=== PATIENT | female | born 1940 | race Caucasian/White ===

== ENCOUNTER 2020-09-07 13:32 | Emergency (ER) | payer MEDICARE, MEDICAID, SELFPAY ==
--- NOTE | ~2020-09-07 | XR_ITS ---
EXAMINATION: XR CHEST CLINICAL INFORMATION: Leg swelling COMPARISON: Previous chest x-ray March 2019 TECHNIQUE: 2 views of the chest were obtained. FINDINGS: The cardiac silhouette is enlarged but stable. Hilar and mediastinal contours are unremarkable. The lungs are clear. There is no pleural effusion. There is scoliosis and degenerative changes of the spine. XR/XR chest 2V IMPRESSION: Stable enlargement of the cardiac silhouette. No evidence for acute disease in the chest.
--- NOTE | ~2020-09-07 | US_ITS ---
EXAMINATION: US VENOUS ULTRASOUND WITH DOPPLER LOWER EXTREMITY, BILATERAL CLINICAL INFORMATION: Edema, swelling. COMPARISON: None TECHNIQUE: Ultrasound of the deep veins is performed from the hip to the calf with compression sonography and color and pulse Doppler assessment. Spectral analysis with color-flow imaging is performed. FINDINGS: RIGHT: There is normal venous compression and respiratory variation and augmented flow. The visualized common femoral vein, superficial femoral vein, profunda femoral vein, popliteal vein, and the trifurcation region shows no evidence of deep venous thrombosis. There is no significant popliteal fossa cyst. . LEFT: There is normal venous compression and respiratory variation and augmented flow. The visualized common femoral vein, superficial femoral vein, profunda femoral vein, popliteal vein, and the trifurcation region shows no evidence of deep venous thrombosis. There is no significant popliteal fossa cyst. . US/US venous duplex LE BI IMPRESSION: No DVT demonstrated in the bilateral lower extremity.
[2020-09-07 13:41] VITALS: BP 150/57; PULSE 63; RESP 16; TEMP 35.9; O2SAT 95; BMI 24.8
[2020-09-07 14:00] VITALS: BP 129/61; PULSE 59; RESP 16; TEMP 35.9; O2SAT 95
--- NOTE | 2020-09-07 15:25 | ECG_ITS ---
Test Reason : WEAK Blood Pressure : / mmHG Vent. Rate : 069 BPM Atrial Rate : 069 BPM P-R Int : 174 ms QRS Dur : 108 ms QT Int : 466 ms P-R-T Axes : 039 -12 035 degrees QTc Int : 499 ms Sinus rhythm with Premature atrial complexes Incomplete right bundle branch block Prolonged QT Abnormal ECG When compared with ECG of 19-MAR-2019 10:16, No significant change was found Referred By: Maribel Loco Electronically Signed By:ANY GILBERT MD
[2020-09-07 15:42] LABS: Hematocrit 44.5 % (37-47); Hemoglobin 13.6 g/dl (12.0-16.0); Mean Corpuscular HGB Conc 30.6 g/dl (31.0-35.0); Mean Corpuscular Hemoglobin 27.8 pg (27.0-33.0); Mean Corpuscular Volume 90.8 fL (80-98); Mean Platelet Volume 12.1 fL (9.4-12.3); NRBC Pct Auto 0.1 /100WBC (0.0-0.2); Platelet Count 890 X10*3/uL (160-400); Red Cell Distribution Width 19.9 % (11.0-16.0)
[2020-09-07 15:52] LABS: WBC ABN SCTR FOR CBC 1
[2020-09-07 15:54] LABS: White Blood Count 35.2 X10*3/uL (4.8-10.8)
--- NOTE | 2020-09-07 16:03 | ED.EXTPRO ---
HPI - Extremity Problem General Chief complaint: Extremity Problem <Angelic Guerrero NP - Last Filed: 09/07/20 20:35> Stated complaint: LEGS WARM TOUCH BRUISES ? MEDICATION REACTION <EDUARDO Mckeon Last Filed: 09/07/20 20:35> Time Seen by Provider: 09/07/20 14:47 <EDUARDO Mckeon Last Filed: 09/07/20 20:35> Source: patient and family <EDUARDO Mckeon Last Filed: 09/07/20 20:35> Mode of arrival: ambulatory <EDUARDO Mckeon Last Filed: 09/07/20 20:35> Limitations: no limitations <EDUARDO Mckeon Last Filed: 09/07/20 20:35> History of Present Illness HPI Narrative: 80-year-old female with a past medical history of polycythemia on Hydrea with intermittent phlebotomies, AFib rate controlled on a beta-anup and on Eliquis, asthma, CVA, diabetes, hypertension, hyperlipidemia here with multiple complaints. The patient tells me that for the last 3 days she has noticed an itching rash to her lower extremities as well as some swelling. She also has some discomfort to the lower extremities. No injury or trauma. She denies any fevers, chills, shortness of breath, chest pain. She tells me that she has been outside in the heat this week and not following her low-salt diet. She does tell me she was walking in the grass prior to any symptoms started. She is unclear if she got bitten by something. She tells me she has episodes lower extremity swelling in the past which self resolved. No history of congestive heart failure She is from [place] but is currently visiting her son and plans to return tomorrow. <EDUARDO Mckeon Last Filed: 09/07/20 20:35> Related Data Home medications: Previous Rx's Medication Instructions Recorded diphenhydramine HCl [Benadryl] 25 mg PO TID PRN #10 cap 09/07/20 hydrocortisone 1 appl TOPICAL BID PRN #28 g 09/07/20 <EDUARDO Mckeon Last Filed: 09/07/20 20:35> Allergies/Adverse reactions: Allergies Allergy/AdvReac Type Severity Reaction Status Date / Time Tetanus Vaccines and Toxoid Allergy Severe ANAPHYLASIX Verified 09/07/20 14:40 [TETANUS VACCINES AND TOXOID] influenza virus vaccine, Allergy Unknown UNKNOWN Verified 09/07/20 14:40 specific [FLU VACCINE] pneumococcal vaccine Allergy Unknown UNKNOWN Verified 09/07/20 14:40 [PNEUMOCOCCAL VACCINE] diltiazem [From CARDIZEM] AdvReac Mild DIZZINESS, Verified 09/07/20 14:40 NAUSEA, DRY MOUTH, likely from afib and not drug oxycodone [OXYCODONE] AdvReac Unknown DIZZINESS Verified 09/07/20 14:40 apricots Allergy Mild Rash Uncoded 09/07/20 14:40 hydroxyuria Allergy Unknown tinnitus Uncoded 02/05/19 00:00 <Angelic Guerrero NP - Last Filed: 09/07/20 20:35> Review of Systems Review of Systems: Yes all other systems are reviewed and are negative <Angelic Guerrero NP - Last Filed: 09/07/20 20:35> Constitutional: Constitutional: Reports no additional constitutional complaints, Denies body ache(s), Denies chills, Denies fever(s), Denies headache(s) and Denies weakness <Angelic Guerrero NP - Last Filed: 09/07/20 20:35> Eyes: Eyes: Reports no additional eye complaints and Denies change in vision <nAgelic Guerrero NP - Last Filed: 09/07/20 20:35> ENT: Reports system reviewed and no additional complaints, except as documented, Denies dizziness, Denies headache(s), Denies nasal congestion, Denies nasal discharge and Denies neck pain <Angelic Guerrero NP - Last Filed: 09/07/20 20:35> Cardiovascular: Cardiovascular: Reports no additional cardiovascular complaints, Denies chest pain, Reports leg edema and Denies dyspnea <Angelic Guerrero NP - Last Filed: 09/07/20 20:35> Respiratory: Respiratory: Reports no additional respiratory complaints, Denies cough and Denies dyspnea <Angelic Guerrero NP - Last Filed: 09/07/20 20:35> Gastrointestinal: Gastrointestinal: Reports no additional gastrointestinal complaints, Denies abdominal pain, Denies diarrhea, Denies nausea and Denies vomiting <Angelic Guerrero NP - Last Filed: 09/07/20 20:35> Genitourinary: Genitourinary: Reports no additional female genitourinary complaints and Denies urinary incontinence <Angelic Guerrero NP - Last Filed: 09/07/20 20:35> Musculoskeletal: Musculoskeletal: Reports no additional musculoskeletal complaints, Denies back pain, Denies arthralgias, Denies joint swelling, Denies neck pain, Denies numbness and Denies tingling <Angelic Guerrero NP - Last Filed: 09/07/20 20:35> Integumentary/Breasts: Skin/Breast: Reports system reviewed and no additional complaints, except as docu and Reports rash <Angelic Guerrero NP - Last Filed: 09/07/20 20:35> Neurologic: Reports system reviewed and no additional complaints, except as documented, Denies Abnormal speech present, Denies dizziness, Denies headache(s), Denies numbness, Denies tingling and Denies weakness <Angelic Guerrero NP - Last Filed: 09/07/20 20:35> [facility] Past Medical History Attestation statement: The following information was validated with the patient. <Angelic Guerrero NP - Last Filed: 09/07/20 20:35> Source: old records reviewed and nursing notes reviewed <Angelic Guerrero NP - Last Filed: 09/07/20 20:35> Medical History: Medical History Asthma Diabetes Enlarged heart Hypertension Hypothyroid Mass of left kidney Stroke Tachycardia <Angelic Guerrero NP - Last Filed: 09/07/20 20:35> Social History Social History: Social History Advance Directives: Yes Advance Directives Information Provided: No Advance Directives on File: No <Angelic Guerrero NP - Last Filed: 09/07/20 20:35> Physical Exam Vital Signs: Vital Signs: Last Vital Signs Temp 96.7 F L 09/07/20 14:00 Pulse 59 09/07/20 14:00 Resp 16 09/07/20 14:00 BP 129/61 09/07/20 14:00 Pulse Ox 95 09/07/20 14:00 Body Mass Index 24.8 <Angelic Guerrero NP - Last Filed: 09/07/20 20:35> Vital Signs: Last Vital Signs Temp 96.7 F L 09/07/20 14:00 Pulse 59 09/07/20 14:00 Resp 16 09/07/20 14:00 BP 129/61 09/07/20 14:00 Pulse Ox 95 09/07/20 14:00 Body Mass Index 24.8 <Darwin Ponce MD - Last Filed: 10/15/20 16:06> Const: General: cooperative, healthy appearing, comfortable and no acute distress <Angelic Guerrero NP - Last Filed: 09/07/20 20:35> Orientation/consciousness: patient oriented x3 <Angelic Guerrero NP - Last Filed: 09/07/20 20:35> Limitations: no limitations <Angelic Guerrero NP - Last Filed: 09/07/20 20:35> HENMT: Head: Yes normal to inspection <Angelic Guerrero NP - Last Filed: 09/07/20 20:35> Ears: hearing grossly normal bilaterally <Angelic Guerrero NP - Last Filed: 09/07/20 20:35> General nose exam: Normal external nose present <Angelic Guerrero NP - Last Filed: 09/07/20 20:35> Face and sinus: Yes normal facial exam <Angelic Guerrero NP - Last Filed: 09/07/20 20:35> Mouth: Normal oral and palatal mucosa present <Angelic Guerrero NP - Last Filed: 09/07/20 20:35> Throat: Yes posterior oropharynx normal <EDUARDO Mckeon Last Filed: 09/07/20 20:35> Eyes: General: appearance normal, both eyes and all related structures <Angelic Guerrero NP - Last Filed: 09/07/20 20:35> Pupils: Equal, round and reactive pupils present <Angelic Guerrero NP - Last Filed: 09/07/20 20:35> Neck: Neck: Yes normal visual inspection <Angelic Guerrero NP - Last Filed: 09/07/20 20:35> Chest: Chest palpation & inspection: normal inspection of the chest <Angelic Guerrero NP - Last Filed: 09/07/20 20:35> Resp: Effort & Inspection: normal respiratory effort <Angelic Guerrero NP - Last Filed: 09/07/20 20:35> Auscultation: clear to auscultation bilaterally <Angelic Guerrero NP - Last Filed: 09/07/20 20:35> Cardio: Rate: regular rate <Angelic Guerrero NP - Last Filed: 09/07/20 20:35> Rhythm: regular rhythm <Angelic Guerrero NP - Last Filed: 09/07/20 20:35> Peripheral pulses: Peripheral pulses 2+ throughout <Angelic Guerrero NP - Last Filed: 09/07/20 20:35> GI: Inspection: Yes normal to inspection <Angelic Guerrero NP - Last Filed: 09/07/20 20:35> Palpation (GI): Soft to palpation and nontender <Angelic Guerrero NP - Last Filed: 09/07/20 20:35> Auscultation: normal bowel sounds <Angelic Guerrero NP - Last Filed: 09/07/20 20:35> Back/Spine/Pelvis: Thoracic/Lumbar Spine: thoracic and lumbar spine normal to inspection <Angelic Guerrero NP - Last Filed: 09/07/20 20:35> Skin: General skin exam: no rashes or lesions noted <Angelic Guerrero NP - Last Filed: 09/07/20 20:35> Neuro: General: patient oriented x3, no focal motor deficits and normal sensation to monofilament <Angelic Guerrero NP - Last Filed: 09/07/20 20:35> Cranial nerves: Yes Equal, round and reactive pupils present <Angelic Guerrero NP - Last Filed: 09/07/20 20:35> Cognition (Neuro): normal cognition <Angelic Guerrero NP - Last Filed: 09/07/20 20:35> Speech: No Abnormal speech present <Angelic Guerrero NP - Last Filed: 09/07/20 20:35> Gait exam (Neuro): Normal gait present <Angelic Guerrero NP - Last Filed: 09/07/20 20:35> Motor exam (neuro): 5/5 motor strength present throughout <Angelic Guerrero NP - Last Filed: 09/07/20 20:35> Extrem: Other: There is swelling, nonpitting to the lower extremities specifically over the feet and ankles which is worsened on the left side. There does appear to be some discoloration to both lower extremities with no warmth or tenderness over the calves. There is a non blanchable rash noted over the left lower extremity which is very itchy per the patient. <Angelic Guerrero NP - Last Filed: 09/07/20 20:35> General: Yes normal to inspection <Angelci Guerrero NP - Last Filed: 09/07/20 20:35> Course Course Course Narrative: 80-year-old female here with complaints of lower extremity swelling and discoloration left greater than right for the last 3 days. She also has a rash over the left lower extremity which she describes as itching. No shortness of breath, chest pain, dizziness, cough, fevers, chills. Patient is visiting from [place] and plans to return tomorrow. Will need labs, EKG, chest x-ray, venous ultrasound 1610-leukocytosis noted 35.2. This is chronic per patient and she has been followed by Hematology for quite some time and not from infection. Her usual a blood cell count ranges from 20 to 40. She has a thrombocytosis of 890 and this is also chronic for the patient and she normally ranges from 502 over a 1000. A copy of the CBC was provided to the family and they were instructed to follow-up with a picker and packer in regards to this. 1800-ultrasound negative for DVT. Initial troponin mildly elevated repeat delta. EKG shows no ischemic changes. BNP mildly elevated at 191 but chest x-ray shows no signs of fluid overload and the patient has no hypoxia, tachypnea, hypertension. Not likely CHF. Discussed findings with the patient. They were given a copy of the ultrasound and x-ray to follow up with her doctors and [place] tomorrow. We discussed a low-salt diet, elevation of the lower legs, compression stockings. Her rash is likely secondary to an irritant dermatitis and occurred after walking in high grass over the weekend. We discussed treatment with supportive measures like a topical steroid and Benadryl as needed. Reviewed worrisome signs and symptoms and when to return to the emergency department. Comfortable with discharge home. <Angelic Guerrero NP - Last Filed: 09/07/20 20:35> I have reviewed the chart <Darwin Ponce MD - Last Filed: 10/15/20 16:06> MDM - Extremity (Nontraumatic) Medical Records Attestation: I reviewed the patient's medical records. <Angelic Guerrero NP - Last Filed: 09/07/20 20:35> Lab Data Attestation: I reviewed the patient's lab results. <Angelic Guerrero NP - Last Filed: 09/07/20 20:35> Result diagrams: : 09/07/20 15:37 09/07/20 15:37 <Angelic Guerrero NP - Last Filed: 09/07/20 20:35> Labs: Lab Results 09/07/20 09/07/20 09/07/20 Range/Units 15:36 15:36 15:36 WBC (4.8-10.8) X10*3/uL RBC (4.20-5.50) X10*6/uL Hgb (12.0-16.0) g/dl Hct (37-47) % MCV (80-98) fL MCH (27.0-33.0) pg MCHC (31.0-35.0) g/dl RDW (11.0-16.0) % Plt Count (160-400) X10*3/uL MPV (9.4-12.3) fL Immature Gran % (Auto) Neut % (Auto) Lymph % (Auto) [place] % (Auto) Eos % (Auto) Baso % (Auto) Lymph # (Auto) [place] # (Auto) Eos # (Auto) Baso # (Auto) Abs Immat Gran (auto) Absolute Neuts (auto) Absolute Nucleated RBC (0.0-0.012) X10*3/uL Nucleated RBC % (auto) (0.0-0.2) /100WBC Neutrophils % (Manual) (45-73) % Band Neutrophils % (3-5) % Lymphocytes % (Manual) (20-40) % Monocytes % (Manual) (2-11) % Eosinophils % (Manual) (0-4) % Basophils % (Manual) (0-1) % Abs Neuts (Manual) (2.2-7.9) X10*3/uL Lymphocytes # (Manual) (0.6-4.8) X10*3/uL Monocytes # (Manual) (0.0-1.2) X10*3/uL Eosinophils # (Manual) (0.0-0.8) X10*3/UL Basophils # (Manual) (0.0-0.3) X10*3/uL Nucleated RBCs (0-0) /100WBC Toxic Vacuolation Platelet Estimate (NORMAL) Large Platelets Plt Morphology Comment RBC Morphology Polychromasia /OIF Hypochromasia /OIF Microcytosis /OIF Macrocytosis /OIF Smear Path Review PT (10.8-13.0) SEC INR (0.9-1.1) Sodium (135-145) mmol/L Potassium (3.3-5.1) mmol/L Chloride (96-108) mmol/L Carbon Dioxide (22-29) mmol/L Anion Gap (12-20) BUN (9-16) mg/dL Creatinine (0.5-1.4) mg/dL Estim Creat Clear Calc Estimated GFR Random Glucose (60-115) mg/dL Calcium (8.4-10.2) mg/dL Magnesium 2.2 (1.6-2.6) mg/dL Total Bilirubin (0.0-1.0) mg/dL Direct Bilirubin (0.0-0.5) mg/dL AST (5-31) U/L ALT (0-31) U/L Alkaline Phosphatase (39-117) U/L Troponin I High Sens 52.5 H* (<3.5-17.0) ng/L B-Natriuretic Peptide 191 H (<100) pg/mL Total Protein (6.5-8.0) g/dL Albumin (3.5-5.0) g/dL 09/07/20 09/07/20 09/07/20 Range/Units 15:36 15:37 15:37 WBC 35.2 H* (4.8-10.8) X10*3/uL RBC 4.90 (4.20-5.50) X10*6/uL Hgb 13.6 (12.0-16.0) g/dl Hct 44.5 (37-47) % MCV 90.8 (80-98) fL MCH 27.8 (27.0-33.0) pg MCHC 30.6 L (31.0-35.0) g/dl RDW 19.9 H (11.0-16.0) % Plt Count 890 H (160-400) X10*3/uL MPV 12.1 (9.4-12.3) fL Immature Gran % (Auto) Cancelled Neut % (Auto) Cancelled Lymph % (Auto) Cancelled [place] % (Auto) Cancelled Eos % (Auto) Cancelled Baso % (Auto) Cancelled Lymph # (Auto) Cancelled [place] # (Auto) Cancelled Eos # (Auto) Cancelled Baso # (Auto) Cancelled Abs Immat Gran (auto) Cancelled Absolute Neuts (auto) Cancelled Absolute Nucleated RBC 0.030 H (0.0-0.012) X10*3/uL Nucleated RBC % (auto) 0.1 (0.0-0.2) /100WBC Neutrophils % (Manual) 96 H (45-73) % Band Neutrophils % 0 L (3-5) % Lymphocytes % (Manual) 1 L (20-40) % Monocytes % (Manual) 1 L (2-11) % Eosinophils % (Manual) 1 (0-4) % Basophils % (Manual) 1 (0-1) % Abs Neuts (Manual) 33.8 H (2.2-7.9) X10*3/uL Lymphocytes # (Manual) 0.4 L (0.6-4.8) X10*3/uL Monocytes # (Manual) 0.4 (0.0-1.2) X10*3/uL Eosinophils # (Manual) 0.4 (0.0-0.8) X10*3/UL Basophils # (Manual) 0.4 H (0.0-0.3) X10*3/uL Nucleated RBCs 1 H (0-0) /100WBC Toxic Vacuolation PRESENT Platelet Estimate INCREASED (NORMAL) Large Platelets PRESENT Plt Morphology Comment NOTED RBC Morphology NOTED Polychromasia 1+ (0-2) /OIF Hypochromasia 1+ (5-14) /OIF Microcytosis 1+ (5-14) /OIF Macrocytosis 1+ (5-14) /OIF Smear Path Review SEE NOTE PT 16.7 H (10.8-13.0) SEC INR 1.4 H (0.9-1.1) Sodium 138 (135-145) mmol/L Potassium 4.4 (3.3-5.1) mmol/L Chloride 104 (96-108) mmol/L Carbon Dioxide 28 (22-29) mmol/L Anion Gap 10 L (12-20) BUN 25 H (9-16) mg/dL Creatinine 0.85 (0.5-1.4) mg/dL Estim Creat Clear Calc 43.0 Estimated GFR > 60 Random Glucose 210 H (60-115) mg/dL Calcium 9.3 (8.4-10.2) mg/dL Magnesium (1.6-2.6) mg/dL Total Bilirubin 1.2 H (0.0-1.0) mg/dL Direct Bilirubin 0.4 (0.0-0.5) mg/dL AST 26 (5-31) U/L ALT 29 (0-31) U/L Alkaline Phosphatase 292 H (39-117) U/L Troponin I High Sens (<3.5-17.0) ng/L B-Natriuretic Peptide (<100) pg/mL Total Protein 7.1 (6.5-8.0) g/dL Albumin 4.0 (3.5-5.0) g/dL 09/07/20 Range/Units 18:29 WBC (4.8-10.8) X10*3/uL RBC (4.20-5.50) X10*6/uL Hgb (12.0-16.0) g/dl Hct (37-47) % MCV (80-98) fL MCH (27.0-33.0) pg MCHC (31.0-35.0) g/dl RDW (11.0-16.0) % Plt Count (160-400) X10*3/uL MPV (9.4-12.3) fL Immature Gran % (Auto) Neut % (Auto) Lymph % (Auto) [place] % (Auto) Eos % (Auto) Baso % (Auto) Lymph # (Auto) [place] # (Auto) Eos # (Auto) Baso # (Auto) Abs Immat Gran (auto) Absolute Neuts (auto) Absolute Nucleated RBC (0.0-0.012) X10*3/uL Nucleated RBC % (auto) (0.0-0.2) /100WBC Neutrophils % (Manual) (45-73) % Band Neutrophils % (3-5) % Lymphocytes % (Manual) (20-40) % Monocytes % (Manual) (2-11) % Eosinophils % (Manual) (0-4) % Basophils % (Manual) (0-1) % Abs Neuts (Manual) (2.2-7.9) X10*3/uL Lymphocytes # (Manual) (0.6-4.8) X10*3/uL Monocytes # (Manual) (0.0-1.2) X10*3/uL Eosinophils # (Manual) (0.0-0.8) X10*3/UL Basophils # (Manual) (0.0-0.3) X10*3/uL Nucleated RBCs (0-0) /100WBC Toxic Vacuolation Platelet Estimate (NORMAL) Large Platelets Plt Morphology Comment RBC Morphology Polychromasia /OIF Hypochromasia /OIF Microcytosis /OIF Macrocytosis /OIF Smear Path Review PT (10.8-13.0) SEC INR (0.9-1.1) Sodium (135-145) mmol/L Potassium (3.3-5.1) mmol/L Chloride (96-108) mmol/L Carbon Dioxide (22-29) mmol/L Anion Gap (12-20) BUN (9-16) mg/dL Creatinine (0.5-1.4) mg/dL Estim Creat Clear Calc Estimated GFR Random Glucose (60-115) mg/dL Calcium (8.4-10.2) mg/dL Magnesium (1.6-2.6) mg/dL Total Bilirubin (0.0-1.0) mg/dL Direct Bilirubin (0.0-0.5) mg/dL AST (5-31) U/L ALT (0-31) U/L Alkaline Phosphatase (39-117) U/L Troponin I High Sens 54.4 H* (<3.5-17.0) ng/L B-Natriuretic Peptide (<100) pg/mL Total Protein (6.5-8.0) g/dL Albumin (3.5-5.0) g/dL <Angelic Guerrero NP - Last Filed: 09/07/20 20:35> Lab Results 09/07/20 09/07/20 09/07/20 Range/Units 15:36 15:36 15:36 WBC (4.8-10.8) X10*3/uL RBC (4.20-5.50) X10*6/uL Hgb (12.0-16.0) g/dl Hct (37-47) % MCV (80-98) fL MCH (27.0-33.0) pg MCHC (31.0-35.0) g/dl RDW (11.0-16.0) % Plt Count (160-400) X10*3/uL MPV (9.4-12.3) fL Immature Gran % (Auto) Neut % (Auto) Lymph % (Auto) [place] % (Auto) Eos % (Auto) Baso % (Auto) Lymph # (Auto) [place] # (Auto) Eos # (Auto) Baso # (Auto) Abs Immat Gran (auto) Absolute Neuts (auto) Absolute Nucleated RBC (0.0-0.012) X10*3/uL Nucleated RBC % (auto) (0.0-0.2) /100WBC Neutrophils % (Manual) (45-73) % Band Neutrophils % (3-5) % Lymphocytes % (Manual) (20-40) % Monocytes % (Manual) (2-11) % Eosinophils % (Manual) (0-4) % Basophils % (Manual) (0-1) % Abs Neuts (Manual) (2.2-7.9) X10*3/uL Lymphocytes # (Manual) (0.6-4.8) X10*3/uL Monocytes # (Manual) (0.0-1.2) X10*3/uL Eosinophils # (Manual) (0.0-0.8) X10*3/UL Basophils # (Manual) (0.0-0.3) X10*3/uL Nucleated RBCs (0-0) /100WBC Toxic Vacuolation Platelet Estimate (NORMAL) Large Platelets Plt Morphology Comment RBC Morphology Polychromasia /OIF Hypochromasia /OIF Microcytosis /OIF Macrocytosis /OIF Smear Path Review PT (10.8-13.0) SEC INR (0.9-1.1) Sodium (135-145) mmol/L Potassium (3.3-5.1) mmol/L Chloride (96-108) mmol/L Carbon Dioxide (22-29) mmol/L Anion Gap (12-20) BUN (9-16) mg/dL Creatinine (0.5-1.4) mg/dL Estim Creat Clear Calc Estimated GFR Random Glucose (60-115) mg/dL Calcium (8.4-10.2) mg/dL Magnesium 2.2 (1.6-2.6) mg/dL Total Bilirubin (0.0-1.0) mg/dL Direct Bilirubin (0.0-0.5) mg/dL AST (5-31) U/L ALT (0-31) U/L Alkaline Phosphatase (39-117) U/L Troponin I High Sens 52.5 H* (<3.5-17.0) ng/L B-Natriuretic Peptide 191 H (<100) pg/mL Total Protein (6.5-8.0) g/dL Albumin (3.5-5.0) g/dL 09/07/20 09/07/20 09/07/20 Range/Units 15:36 15:37 15:37 WBC 35.2 H* (4.8-10.8) X10*3/uL RBC 4.90 (4.20-5.50) X10*6/uL Hgb 13.6 (12.0-16.0) g/dl Hct 44.5 (37-47) % MCV 90.8 (80-98) fL MCH 27.8 (27.0-33.0) pg MCHC 30.6 L (31.0-35.0) g/dl RDW 19.9 H (11.0-16.0) % Plt Count 890 H (160-400) X10*3/uL MPV 12.1 (9.4-12.3) fL Immature Gran % (Auto) Cancelled Neut % (Auto) Cancelled Lymph % (Auto) Cancelled [place] % (Auto) Cancelled Eos % (Auto) Cancelled Baso % (Auto) Cancelled Lymph # (Auto) Cancelled [place] # (Auto) Cancelled Eos # (Auto) Cancelled Baso # (Auto) Cancelled Abs Immat Gran (auto) Cancelled Absolute Neuts (auto) Cancelled Absolute Nucleated RBC 0.030 H (0.0-0.012) X10*3/uL Nucleated RBC % (auto) 0.1 (0.0-0.2) /100WBC Neutrophils % (Manual) 96 H (45-73) % Band Neutrophils % 0 L (3-5) % Lymphocytes % (Manual) 1 L (20-40) % Monocytes % (Manual) 1 L (2-11) % Eosinophils % (Manual) 1 (0-4) % Basophils % (Manual) 1 (0-1) % Abs Neuts (Manual) 33.8 H (2.2-7.9) X10*3/uL Lymphocytes # (Manual) 0.4 L (0.6-4.8) X10*3/uL Monocytes # (Manual) 0.4 (0.0-1.2) X10*3/uL Eosinophils # (Manual) 0.4 (0.0-0.8) X10*3/UL Basophils # (Manual) 0.4 H (0.0-0.3) X10*3/uL Nucleated RBCs 1 H (0-0) /100WBC Toxic Vacuolation PRESENT Platelet Estimate INCREASED (NORMAL) Large Platelets PRESENT Plt Morphology Comment NOTED RBC Morphology NOTED Polychromasia 1+ (0-2) /OIF Hypochromasia 1+ (5-14) /OIF Microcytosis 1+ (5-14) /OIF Macrocytosis 1+ (5-14) /OIF Smear Path Review SEE NOTE PT 16.7 H (10.8-13.0) SEC INR 1.4 H (0.9-1.1) Sodium 138 (135-145) mmol/L Potassium 4.4 (3.3-5.1) mmol/L Chloride 104 (96-108) mmol/L Carbon Dioxide 28 (22-29) mmol/L Anion Gap 10 L (12-20) BUN 25 H (9-16) mg/dL Creatinine 0.85 (0.5-1.4) mg/dL Estim Creat Clear Calc 43.0 Estimated GFR > 60 Random Glucose 210 H (60-115) mg/dL Calcium 9.3 (8.4-10.2) mg/dL Magnesium (1.6-2.6) mg/dL Total Bilirubin 1.2 H (0.0-1.0) mg/dL Direct Bilirubin 0.4 (0.0-0.5) mg/dL AST 26 (5-31) U/L ALT 29 (0-31) U/L Alkaline Phosphatase 292 H (39-117) U/L Troponin I High Sens (<3.5-17.0) ng/L B-Natriuretic Peptide (<100) pg/mL Total Protein 7.1 (6.5-8.0) g/dL Albumin 4.0 (3.5-5.0) g/dL /10/21 Range/Units 18:29 WBC (4.8-10.8) X10*3/uL RBC (4.20-5.50) X10*6/uL Hgb (12.0-16.0) g/dl Hct (37-47) % MCV (80-98) fL MCH (27.0-33.0) pg MCHC (31.0-35.0) g/dl RDW (11.0-16.0) % Plt Count (160-400) X10*3/uL MPV (9.4-12.3) fL Immature Gran % (Auto) Neut % (Auto) Lymph % (Auto) [place] % (Auto) Eos % (Auto) Baso % (Auto) Lymph # (Auto) [place] # (Auto) Eos # (Auto) Baso # (Auto) Abs Immat Gran (auto) Absolute Neuts (auto) Absolute Nucleated RBC (0.0-0.012) X10*3/uL Nucleated RBC % (auto) (0.0-0.2) /100WBC Neutrophils % (Manual) (45-73) % Band Neutrophils % (3-5) % Lymphocytes % (Manual) (20-40) % Monocytes % (Manual) (2-11) % Eosinophils % (Manual) (0-4) % Basophils % (Manual) (0-1) % Abs Neuts (Manual) (2.2-7.9) X10*3/uL Lymphocytes # (Manual) (0.6-4.8) X10*3/uL Monocytes # (Manual) (0.0-1.2) X10*3/uL Eosinophils # (Manual) (0.0-0.8) X10*3/UL Basophils # (Manual) (0.0-0.3) X10*3/uL Nucleated RBCs (0-0) /100WBC Toxic Vacuolation Platelet Estimate (NORMAL) Large Platelets Plt Morphology Comment RBC Morphology Polychromasia /OIF Hypochromasia /OIF Microcytosis /OIF Macrocytosis /OIF Smear Path Review PT (10.8-13.0) SEC INR (0.9-1.1) Sodium (135-145) mmol/L Potassium (3.3-5.1) mmol/L Chloride (96-108) mmol/L Carbon Dioxide (22-29) mmol/L Anion Gap (12-20) BUN (9-16) mg/dL Creatinine (0.5-1.4) mg/dL Estim Creat Clear Calc Estimated GFR Random Glucose (60-115) mg/dL Calcium (8.4-10.2) mg/dL Magnesium (1.6-2.6) mg/dL Total Bilirubin (0.0-1.0) mg/dL Direct Bilirubin (0.0-0.5) mg/dL AST (5-31) U/L ALT (0-31) U/L Alkaline Phosphatase (39-117) U/L Troponin I High Sens 54.4 H* (<3.5-17.0) ng/L B-Natriuretic Peptide (<100) pg/mL Total Protein (6.5-8.0) g/dL Albumin (3.5-5.0) g/dL <Darwin Ponce MD - Last Filed: 10/15/20 16:06> Imaging Data Chest x-ray: Attestation: I personally reviewed and interpreted this imaging study as follows: <Angelic Guerrero NP - Last Filed: 09/07/20 20:35> Radiologist's impression: [address] [address]MWdn ReportSigned Patient: Janice SantanaMR#: [id number]: 1940Acct:[id number]/Sex: 80 / FADM Date: 09/07/20Loc: [email or web address] Dr: Ordering Physician: ANGELIC GUERRERO NP Date of Service: 09/07/20 Procedure(s): XR chest 2V Accession Number(s): [id number] cc: ANGELIC GUERRERO NP~ EXAMINATION: XR CHEST CLINICAL INFORMATION: Leg swelling COMPARISON: Previous chest x-ray March 2019 TECHNIQUE: 2 views of the chest were obtained. FINDINGS: The cardiac silhouette is enlarged but stable. Hilar and mediastinal contours are unremarkable. The lungs are clear. There is no pleural effusion. There is scoliosis and degenerative changes of the spine. XR/XR chest 2V IMPRESSION: Stable enlargement of the cardiac silhouette. No evidence for acute disease in the chest. <Angelic Guerrero NP - Last Filed: 09/07/20 20:35> ECG Data Attestation EKG: I personally reviewed and interpreted this ECG as follows: <Angelic Guerrero NP - Last Filed: 09/07/20 20:35> ECG interpretation date: 09/07/20 <Angelic Guerrero NP - Last Filed: 09/07/20 20:35> ECG interpretation time: 15:32 <Angelic Guerrero NP - Last Filed: 09/07/20 20:35> Interpretation: Sinus rhythm with PACs with a rate of 69, normal VT, normal QRS, incomplete right bundle branch block, QTC 499 <Angelic Guerrero NP - Last Filed: 09/07/20 20:35> Discharge Plan Discharge Clinical Impression: Polycythemia, Lower extremity edema, Leukocytosis, H/O thrombocytosis <Angelic Guerrero NP - Last Filed: 09/07/20 20:35> Patient Disposition: Home, Self-Care <Angelic Guerrero NP - Last Filed: 09/07/20 20:35> Instructions: Leg Edema (ED), Polycythemia Vera (DC) <Angelic Guerrero NP - Last Filed: 09/07/20 20:35> Additional Instructions: 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 [place] Elevate your lower extremities Buy compression stockings limit salt in the diet Seek care in ER for shortness of breath, chest pain, fevers>100.4 You were given copies of your labs, ultrasound and x-ray <Angelic Guerrero NP - Last Filed: 09/07/20 20:35> Prescriptions: New hydrocortisone 2.5 % cream 1 appl topical BID PRN (Reason: rash) Qty: 28 RF: 0 diphenhydramine HCl [Benadryl] 25 mg capsule 25 mg PO TID PRN (Reason: itching) Qty: 10 RF: 0 <Angelic Guerrero NP - Last Filed: 09/07/20 20:35> Referrals: Physician,Unknown [Primary Care Provider] - 2 days <Angelic Guerrero NP - Last Filed: 09/07/20 20:35> Interventions: ED Discharge Assessment Last Done: 09/07/20 19:41 <Angelic Guerrero NP - Last Filed: 09/07/20 20:35> Discharge Date/Time: 09/07/20 20:03 <Angelic Guerrero NP - Last Filed: 09/07/20 20:35> Print Language: [place] <Angelic Guerrero NP - Last Filed: 09/07/20 20:35>
[2020-09-07 16:04] LABS: Magnesium 2.2 mg/dL (1.6-2.6)
[2020-09-07 16:06] LABS: Alanine Aminotransferase 29 U/L (0-31); Alkaline Phosphatase 292 U/L (39-117); Anion Gap 10 (12-20); Aspartate Amino Transferase 26 U/L (5-31); Bilirubin Direct 0.4 mg/dL (0.0-0.5); Bilirubin Total 1.2 mg/dL (0.0-1.0); Blood Urea Nitrogen 25 mg/dL (9-16); Calcium 9.3 mg/dL (8.4-10.2); Carbon Dioxide 28 mmol/L (22-29); Chloride 104 mmol/L (96-108); Estimated Glomerular Filt Rate > 60; Glucose Random 210 mg/dL (60-115); Potassium 4.4 mmol/L (3.3-5.1); Sodium 138 mmol/L (135-145); Total Protein 7.1 g/dL (6.5-8.0)
[2020-09-07 16:07] LABS: INTERNATIONAL NORM RATIO 1.4 (0.9-1.1); Prothrombin Time 16.7 SEC (10.8-13.0)
[2020-09-07 16:10] LABS: B Type Natriuretic Peptide 191 pg/mL (<100)
[2020-09-07 16:20] LABS: Troponin-I High Sensitivity 52.5 ng/L (<3.5-17.0)
[2020-09-07 16:27] LABS: Band Neutrophils Percent 0 % (3-5); Basophils Abs Manual 0.4 X10*3/uL (0.0-0.3); Basophils Percent Manual 1 % (0-1); Eosinophils Absolute Manual 0.4 X10*3/UL (0.0-0.8); Eosinophils Percent Manual 1 % (0-4); Lymphocytes Absolute Manual 0.4 X10*3/uL (0.6-4.8); Lymphocytes Percent Manual 1 % (20-40); Monocytes Absolute Manual 0.4 X10*3/uL (0.0-1.2); Monocytes Percent Manual 1 % (2-11); Neutrophils Absolute Manual 33.8 X10*3/uL (2.2-7.9); Neutrophils Percent Manual 96 % (45-73); Nucleated Red Blood Cells 1 /100WBC (0-0)
[2020-09-07 16:29] LABS: Macrocytosis 1+ (5-14) /OIF; Microcytosis 1+ (5-14) /OIF
[2020-09-07 16:30] LABS: Polychromasia 1+ (0-2) /OIF
[2020-09-07 16:31] LABS: Hypochromasia 1+ (5-14) /OIF; Platelet Estimate INCREASED (NORMAL); Platelet Morphology Comment NOTED; RBC Morphology NOTED; Toxic Vacuolation PRESENT
[2020-09-07 16:32] LABS: Large Platelet PRESENT
[2020-09-07 19:14] LABS: Troponin-I High Sensitivity 54.4 ng/L (<3.5-17.0)
[2020-09-07] MEDS: diphenhydrAMINE HCL 25 MG TABLET 50 MG PO (19:39)
== END 2020-09-07 20:03 | disposition home or self-care (01) ==
PROVIDERS: Nurse Practitioner Family; Emergency Provider Emergency Medicine
DX: D75.1 Secondary polycythemia (principal); R60.0 Localized edema; I48.91 Unspecified atrial fibrillation; R06.02 Shortness of breath; I10 Essential (primary) hypertension; E78.5 Hyperlipidemia, unspecified; Z79.01 Long term (current) use of anticoagulants; Z79.899 Other long term (current) drug therapy
CPT/HCPCS: 36415; 71046; 80048; 80076; 83735; 83880; 84484; 85007; 85027; 85610; 93005; 93970; 99284; Q0163